=== PATIENT | female | born 1960 | race Caucasian/White ===

== ENCOUNTER → 2024-12-03 06:57 | Outpatient (CLI) | payer OTHER ==
[2024-12-06 07:08] LABS: dRVVT 37.8 sec (0.0-47.0); interp Comment: (.); ptt-la 39.8 sec (0.0-43.5)
== END | disposition home or self-care (01) ==
LOC: LAB 06:13
PROVIDERS: ATTEND Internal Medicine Hematology & Oncology
DX: D68.59 Other primary thrombophilia (principal); D68.61 Antiphospholipid syndrome; D68.62 Lupus anticoagulant syndrome; D68.312 Antiphospholipid antibody with hemorrhagic disorder